=== PATIENT | female | born 1965 | race Caucasian/White ===

== ENCOUNTER 2017-06-18 10:44 | Emergency (ER) | payer OTHER ==
[~2017-06-18] VITALS: Ht 149.9 cm; Wt 54.4 kg
[2017-06-18] MEDS ORDERED: NORVASC5 MG PO (13:08)
== END 2017-06-18 13:37 | disposition home or self-care (01) ==
LOC: ER 10:44
DX: I10 Essential (primary) hypertension (principal)

== ENCOUNTER 2017-12-23 06:24 | Emergency (ER) | payer OTHER ==
[~2017-12-23] VITALS: Ht 127 cm; Wt 63.5 kg
[~2017-12-23 06:24] MED LIST: NORVASC5 MG PO
== END 2017-12-23 09:43 | disposition home or self-care (01) ==
LOC: ER 06:24
DX: C44.521 Squamous cell carcinoma of skin of breast (principal)

== ENCOUNTER 2017-12-25 11:50 | Outpatient (CLI) | payer OTHER | END 2017-12-25 11:57 | disposition home or self-care (01) | LOC: MAMO-SONO 11:50 | DX: Z12.31 Encounter for screening mammogram for malignant neoplasm of breast (principal); N60.11 Diffuse cystic mastopathy of right breast; N60.12 Diffuse cystic mastopathy of left breast ==

== ENCOUNTER 2017-12-28 10:13 | Outpatient (CLI) | payer OTHER | END 2017-12-28 10:21 | disposition home or self-care (01) | LOC: SONOGRAMA 10:13 | DX: N60.11 Diffuse cystic mastopathy of right breast (principal); N60.12 Diffuse cystic mastopathy of left breast; N63.21 Unspecified lump in the left breast, upper outer quadrant ==

== ENCOUNTER 2018-01-17 08:58 | Outpatient (CLI) | payer OTHER | END 2018-01-17 09:09 | disposition home or self-care (01) | LOC: NUCLEAR 08:58 | DX: C50.412 Malignant neoplasm of upper-outer quadrant of left female breast (principal) | CPT/HCPCS: 78320; A9503; 78306 ==

== ENCOUNTER 2018-07-25 08:30 | Inpatient (IN) | payer OTHER ==
[~2018-07-25] VITALS: Ht 152.4 cm; Wt 56.2 kg
[2018-07-25] MEDS ORDERED: CORGARD20 MG PO (12:42)
[2018-07-25] MEDS ORDERED: FEMARA2.5 MG PO (12:42)
[2018-07-25] MEDS ORDERED: LEVO-T25 MCG PO (12:42)
== END 2018-07-30 08:00 | disposition home or self-care (01) | DRG 583 ==
LOC: O/R 07-29 06:18 → CIR.AMB 07-29 07:00 → O/R 07-29 07:00 → EDSTATUS 07-29 08:30 → O/R 07-29 08:30 → SURG 07-29 19:13 → O/R 07-29 19:13 → CIR.AMB 07-30 08:00 → O/R 07-30 08:00 → SURG 07-30 09:58
PROVIDERS: Plastic Surgery; ADMIT Surgery
PROC: 0HRU076 Replacement of Left Breast using Transverse Rectus Abdominis Myocutaneous Flap, Open Approach (ICD-10-PCS; 2018-07-29)
PROC: 0HTU0ZZ Resection of Left Breast, Open Approach (ICD-10-PCS; principal; 2018-07-29 07:00)
PROC: 0KXG0Z5 Transfer Left Trunk Muscle, Latissimus Dorsi Myocutaneous Flap, Open Approach (ICD-10-PCS; 2018-07-29 07:00)
DX: C50.412 Malignant neoplasm of upper-outer quadrant of left female breast (principal); Z90.12 Acquired absence of left breast and nipple

== ENCOUNTER 2019-09-02 08:11 | Outpatient (CLI) | payer OTHER ==
[~2019-09-02 08:11] MED LIST changes: +CORGARD20 MG PO; +FEMARA2.5 MG PO; +LEVO-T25 MCG PO
== END 2019-09-02 08:33 | disposition home or self-care (01) ==
LOC: MAMO-SONO 08:11
DX: C50.412 Malignant neoplasm of upper-outer quadrant of left female breast (principal)

== ENCOUNTER 2020-05-07 14:11 | Emergency (ER) | payer OTHER ==
[~2020-05-07] VITALS: Ht 152.4 cm; Wt 63.5 kg
== END 2020-05-07 16:19 | disposition home or self-care (01) ==
LOC: ER 14:11
DX: S20.01XA Contusion of right breast, initial encounter (principal); W18.39XA Other fall on same level, initial encounter; Y93.89 Activity, other specified; Y92.098 Other place in other non-institutional residence as the place of occurrence of the external cause; Y99.8 Other external cause status

== ENCOUNTER 2020-05-26 08:02 | Outpatient (CLI) | payer OTHER | END 2020-05-26 08:10 | disposition home or self-care (01) | LOC: NUCLEAR 08:02 | PROVIDERS: ATTEND Internal Medicine | DX: C50.412 Malignant neoplasm of upper-outer quadrant of left female breast (principal); C78.1 Secondary malignant neoplasm of mediastinum; C78.00 Secondary malignant neoplasm of unspecified lung; C78.6 Secondary malignant neoplasm of retroperitoneum and peritoneum | CPT/HCPCS: 78815; A9552 ==

== ENCOUNTER 2020-12-03 08:05 | Outpatient (CLI) | payer OTHER | END 2020-12-03 08:17 | disposition home or self-care (01) | LOC: TOM 08:05 | PROVIDERS: ATTEND Internal Medicine | DX: R10.84 Generalized abdominal pain (principal); R07.89 Other chest pain; C77.1 Secondary and unspecified malignant neoplasm of intrathoracic lymph nodes; C78.00 Secondary malignant neoplasm of unspecified lung; C77.3 Secondary and unspecified malignant neoplasm of axilla and upper limb lymph nodes; C50.412 Malignant neoplasm of upper-outer quadrant of left female breast; C78.6 Secondary malignant neoplasm of retroperitoneum and peritoneum | CPT/HCPCS: 71270; 74178; Q9965 ==

== ENCOUNTER → 2020-12-10 | Outpatient (CLI) | payer OTHER | END | disposition home or self-care (01) | LOC: NUCLEAR 08:16 | PROVIDERS: ATTEND Internal Medicine | DX: C50.412 Malignant neoplasm of upper-outer quadrant of left female breast (principal); C78.00 Secondary malignant neoplasm of unspecified lung; C77.3 Secondary and unspecified malignant neoplasm of axilla and upper limb lymph nodes; C78.6 Secondary malignant neoplasm of retroperitoneum and peritoneum; C77.1 Secondary and unspecified malignant neoplasm of intrathoracic lymph nodes | CPT/HCPCS: 78803; A9503 ==

== ENCOUNTER 2021-06-08 07:43 | Outpatient (CLI) | payer OTHER | END 2021-06-08 07:44 | disposition home or self-care (01) | LOC: NUCLEAR 07:43 | PROVIDERS: ATTEND Internal Medicine | DX: C50.412 Malignant neoplasm of upper-outer quadrant of left female breast (principal) ==

== ENCOUNTER 2022-09-18 07:38 | Outpatient (CLI) | payer OTHER | END 2022-09-18 07:39 | disposition home or self-care (01) | LOC: NUCLEAR 07:38 | PROVIDERS: ATTEND Internal Medicine | DX: C50.412 Malignant neoplasm of upper-outer quadrant of left female breast (principal); C78.1 Secondary malignant neoplasm of mediastinum; C78.00 Secondary malignant neoplasm of unspecified lung; C77.3 Secondary and unspecified malignant neoplasm of axilla and upper limb lymph nodes; C78.6 Secondary malignant neoplasm of retroperitoneum and peritoneum; C77.1 Secondary and unspecified malignant neoplasm of intrathoracic lymph nodes | CPT/HCPCS: 78803; A9503 ==

== ENCOUNTER 2023-04-30 07:17 | Outpatient (CLI) | payer OTHER | END 2023-04-30 07:18 | disposition home or self-care (01) | LOC: NUCLEAR 07:17 | PROVIDERS: ATTEND Internal Medicine | DX: C77.0 Secondary and unspecified malignant neoplasm of lymph nodes of head, face and neck (principal); C78.00 Secondary malignant neoplasm of unspecified lung; C50.412 Malignant neoplasm of upper-outer quadrant of left female breast | CPT/HCPCS: 78816; A9552 ==

== ENCOUNTER 2024-01-17 07:28 | Outpatient (CLI) | payer OTHER | END 2024-01-17 07:29 | disposition home or self-care (01) | LOC: NUCLEAR 07:28 | DX: C77.1 Secondary and unspecified malignant neoplasm of intrathoracic lymph nodes (principal); C77.5 Secondary and unspecified malignant neoplasm of intrapelvic lymph nodes; C50.412 Malignant neoplasm of upper-outer quadrant of left female breast; C77.0 Secondary and unspecified malignant neoplasm of lymph nodes of head, face and neck | CPT/HCPCS: 78816; A9552 ==

== ENCOUNTER → 2024-07-11 | Emergency (ER) | payer OTHER ==
[~2024-07-11] VITALS: Ht 157.5 cm; Wt 59.9 kg
[~2024-07-11] MED LIST changes: +ATORVASTATIN CA20 MG PO; +KETOROLAC TROMETHAMINE 30 MG VIAL IM STA; +KETOROLAC TROMETHAMINE 30 MG VIAL ONE; +NADOLOL40 MG PO; +ORPHENADRINE CITRATE 30 MG/ML AMPUL IM STA; +ORPHENADRINE CITRATE 30 MG/ML AMPUL ONE
== END | disposition home or self-care (01) ==
LOC: ER 10:22
DX: G44.209 Tension-type headache, unspecified, not intractable (principal)
CPT/HCPCS: 96372; 99282; J1885; J2360

== ENCOUNTER → 2024-07-15 | Emergency (ER) | payer OTHER ==
[~2024-07-15] MED LIST changes: +IBU800 MG PO; -KETOROLAC TROMETHAMINE 30 MG VIAL IM STA; -KETOROLAC TROMETHAMINE 30 MG VIAL ONE; -ORPHENADRINE CITRATE 30 MG/ML AMPUL IM STA; -ORPHENADRINE CITRATE 30 MG/ML AMPUL ONE; +ZANAFLEX4 MG PO
== END | disposition home or self-care (01) ==
LOC: ER 14:48
DX: R42 Dizziness and giddiness (principal); E03.8 Other specified hypothyroidism; Z85.3 Personal history of malignant neoplasm of breast; I10 Essential (primary) hypertension

== ENCOUNTER 2024-07-28 12:50 | Emergency (ER) | payer OTHER ==
[~2024-07-28] VITALS: Ht 162.6 cm; Wt 59.0 kg
[~2024-07-28 12:50] MED LIST changes: -IBU800 MG PO; -ZANAFLEX4 MG PO
[2024-07-28] MEDS ORDERED: ZANAFLEX4 MG PO (14:57)
[2024-07-28] MEDS ORDERED: IBU800 MG PO (14:57)
[2024-07-28] MEDS ORDERED: FAMOTIDINE/PF 20 MG in 0.9 % SODIUM CHLORIDE 8 ML IV PUSH STA (16:44)
[2024-07-28] MEDS ORDERED: 0.9 % SODIUM CHLORIDE 1,000 ML IV SCH (16:45)
[2024-07-28] MEDS ORDERED: MECLIZINE HCL 25 MG TABLET PO ONE ×2 (16:45→16:46)
[2024-07-28] MEDS ORDERED: ONDANSETRON HCL 2 MG/ML VIAL IV ONE (16:45)
[2024-07-28] MEDS ORDERED: FAMOTIDINE/PF 20 MG/2 ML VIAL ONE (16:46)
[2024-07-28] MEDS ORDERED: ONDANSETRON HCL 2 MG/ML VIAL ONE (16:46)
[2024-07-28 17:14] LABS: HEMATOCRIT 45.8 % (36.0-45.00); HEMOGLOBIN 15.4 g/dL (12.0-15.00); MEAN CELL VOLUME 98.3 fL (80.00-100.00); MEAN CORPUSCULAR HEMOGLOBIN 33.1 pg (27.00-32.0); MEAN CORPUSCULAR HGB CONC 33.6 g/dl (32.0-36.0); RED BLOOD COUNT 4.65 M/uL (4.00-6.00); RED CELL DISTRIBUTION WIDTH 14.5 % (11.5-14.5)
[2024-07-28 17:22] LABS: PLATELET COUNT 122 K/uL (150-450)
[2024-07-28 17:39] LABS: BILIRUBIN TOTAL 0.65 mg/dL (0.3-1.2); CALCIUM 9.9 mg/dL (8.5-10.1); CREATININE SERUM 0.76 mg/dL (0.55-1.02); GFR 77.63; GLOBULINA 4.9 G/DL (2.4-3.5); POTASSIUM 3.76 mEq/L (3.5-5.1); TOTAL PROTEIN 8.9 gm/dL (6.4-8.2)
[2024-07-28] MEDS ORDERED: DEXAMETHASONE SODIUM PHOSPHATE 4 MG/ML VIAL IV ONE (21:45)
[2024-07-28] MEDS ORDERED: DEXAMETHASONE SODIUM PHOSPHATE 4 MG/ML VIAL ONE (22:09)
== END 2024-07-28 22:39 | disposition designated cancer center or children's hospital (05) ==
LOC: ER 12:50
PROVIDERS: General Practice
DX: G93.89 Other specified disorders of brain (principal); R42 Dizziness and giddiness; R11.10 Vomiting, unspecified; I10 Essential (primary) hypertension
CPT/HCPCS: 36415; 70450; 93005; 96365; 96366; 99285; J1100; J2405; J3490; J7030